=== PATIENT | male | born 1940 | race Two or more races ===

== ENCOUNTER 2020-07-20 09:15 | Inpatient (IN) | payer OTHER ==
[~2020-07-20] VITALS: Ht 177.8 cm; Wt 90.3 kg
[2020-07-21] MEDS ORDERED: LASIX20 MG PO (09:01)
[2020-07-21] MEDS ORDERED: ATIVAN2 M1 PO (09:01)
[2020-07-21] MEDS ORDERED: LOTREL 5-40 MG1 EACH PO (09:01)
[2020-07-21] MEDS ORDERED: SIMVASTATIN40 MG PO (09:02)
[2020-07-21] MEDS ORDERED: AMIODARONE HCL100 MG PO (09:02)
[2020-07-21] MEDS ORDERED: PRILOSEC OTC20 MG PO (09:02)
[2020-07-27] MEDS ORDERED: AMIODARONE HCL200 MG (13:07)
[2020-07-30] MEDS ORDERED: PERCOCET 5-3251 EACH PO (08:08)
[2020-07-30] MEDS ORDERED: ELIQUIS2.5 MG PO (08:08)
[2020-07-30] MEDS ORDERED: CIPRO500 MG PO (08:08)
== END 2020-07-30 13:59 | DRG 470 ==
LOC: SURH 07-27 06:20 → O/R 07-27 06:20 → SURH 07-27 07:00
PROVIDERS: ADMIT Orthopaedic Surgery; ATTEND Orthopaedic Surgery
PROC: 4A12X4Z Monitoring of Cardiac Electrical Activity, External Approach (ICD-10-PCS; 2020-07-27)
PROC: 0SRB0JZ Replacement of Left Hip Joint with Synthetic Substitute, Open Approach (ICD-10-PCS; principal; 2020-07-27 07:00)
DX: M16.12 Unilateral primary osteoarthritis, left hip (principal); D62 Acute posthemorrhagic anemia; I48.0 Paroxysmal atrial fibrillation; Z79.01 Long term (current) use of anticoagulants; J44.9 Chronic obstructive pulmonary disease, unspecified; E78.00 Pure hypercholesterolemia, unspecified; I11.9 Hypertensive heart disease without heart failure